=== PATIENT | female | born 1955 | race Caucasian/White ===

== ENCOUNTER → 2024-07-23 | Outpatient (CLI) | payer MEDICARE, SELFPAY ==
--- NOTE | 2024-07-23 16:34 | XR_ITS ---
Examination: CT abdomen and pelvis without contrast. Coronal 3-D reconstructions. Sagittal 2-D reconstructions. Date and time of exam:July 23, 2024 1650 hrs. Comparison November 30, 2022 Indications: Right upper abdominal pain left upper abdominal pain beginning 2 years ago CTDI: vol (mGy): 12.2 DLP: (mGycm): 654 Technique: Axial images of the abdomen have been obtained, 3 mm slice thickness Intravenous contrast material has not been administered. Low dose protocols were performed. One or more of the following dose reduction techniques were used; automated exposure control, adjustment of the mA and/or KV according to patient size, use of iterative reconstruction technique. Findings: Left base pneumonia with partially loculated left pleural fluid No focal liver or splenic lesion Significant patient motion severely degrades image quality Abnormal appearing gallbladder with wall thickening No gross pancreatic mass Atrophic kidneys with moderate renal parenchymal scar formation Moderate left hydronephrosis 8 mm calculus in the left renal pelvis with 1 mm lower pole calculus Aorta normal size Normal appendix No bowel obstruction No diverticulitis Contracted urinary bladder Absent uterus Impression: Left base pneumonia with loculated left pleural fluid, recommend PA lateral chest follow-up Recommend hepatobiliary sonography to exclude gallbladder wall thickening Atrophic kidneys with moderate renal parenchymal scar formation Moderate left hydronephrosis, 8 mm calculus in the left renal pelvis
== END | disposition home or self-care (01) ==
PROVIDERS: PCP Family Medicine; Referring Provider Urology; Visit Provider Urology
DX: J18.9 Pneumonia, unspecified organism (principal); N26.1 Atrophy of kidney (terminal); N28.89 Other specified disorders of kidney and ureter; N13.30 Unspecified hydronephrosis; N20.0 Calculus of kidney
CPT/HCPCS: 74176

== ENCOUNTER → 2024-07-24 | Outpatient (BNVA) | payer MEDICARE, SELFPAY | END | disposition home or self-care (01) | PROVIDERS: PCP Family Medicine; Referring Provider Family Medicine; Visit Provider Urology | DX: N20.0 Calculus of kidney (principal); D05.12 Intraductal carcinoma in situ of left breast; E03.9 Hypothyroidism, unspecified; F41.9 Anxiety disorder, unspecified; N18.9 Chronic kidney disease, unspecified; E66.9 Obesity, unspecified; Z68.35 Body mass index [BMI] 35.0-35.9, adult | CPT/HCPCS: 81003; 99212; G0463 ==

== ENCOUNTER → 2024-07-31 | Outpatient (CLI) | payer MEDICARE, SELFPAY ==
--- NOTE | 2024-07-31 16:03 | XR_ITS ---
Examination: PA lateral chest 2 views Technique: Upright PA lateral chest 2 views Exam date and time: July 31, 2024 at 1658 hrs. Comparison May 18, 2024 Indications: Congestion beginning 2 months ago. Findings: Pneumonia left base and lingular segment with lateral No significant cardiac enlargement Ectatic aorta Port-A-Cath tip satisfactory position Impression: Left lingular segment and left base pneumonia with pleural fluid
== END | disposition home or self-care (01) ==
LOC: CDIM 15:57
PROVIDERS: Referring Provider Family Medicine; Visit Provider Family Medicine
DX: J18.9 Pneumonia, unspecified organism (principal)
CPT/HCPCS: 71046

== ENCOUNTER → 2024-08-17 | Outpatient (CLI) | payer MEDICARE, SELFPAY ==
[2024-08-17 08:33] LABS: Collection Type, Urine Clean Catch
--- NOTE | 2024-08-17 08:50 | EKG_ITS ---
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
[2024-08-17 09:26] LABS: Basophils # (Auto) 0.1 Thou/mm3 (0.0-0.2); Basophils % (Auto) 1 % (0-2.5); Eosinophils # (Auto) 0.3 Thou/mm3 (0.0-0.5); Eosinophils % (Auto) 4 % (0-10); Hematocrit 33.5 % (36.0-46.0); Hemoglobin 10.1 g/dL (12.0-16.0); Immature Granulocytes % (Auto) 0 % (0-0); Immature Granulocytes Auto 0.02 Thou/mm3 (0.00-0.00); Lymphocytes # (Auto) 1.2 Thou/mm3 (1.0-4.8); Lymphocytes % (Auto) 19 % (10-50); Mean Corpuscular HGB Conc 30.1 g/dl (31.0-37.0); Mean Corpuscular Hemoglobin 27.9 pg (25.0-35.0); Mean Corpuscular Volume 93 fL (80-100); Monocytes # (Auto) 0.6 Thou/mm3 (0.0-0.8); Monocytes % (Auto) 10 % (0-12); Neutrophils # (Auto) 4.1 Thou/mm3 (1.8-7.7); Neutrophils % (Auto) 65 % (37-80); Nucleated Red Blood Cell % 0 /100 WBC (0); Platelet Count 281 Thou/mm3 (140-440); RDW Standard Deviation 54.2 fL (36.4-46.3); Red Blood Count 3.62 Miln/mm3 (4.00-5.20); White Blood Count 6.3 Thou/mm3 (3.6-11.0)
[2024-08-17 09:51] LABS: Alanine Aminotransferase < 7 U/L (10-49); Albumin, Serum 4.1 gm/dL (3.4-4.8); Alkaline Phosphatase 77 U/L (46-116); Anion Gap 9 (7-16); Aspartate Amino Transferase 15 U/L (0-34); BUN/Creatinine Ratio 17 Ratio (12-20); Bilirubin,Direct 0.2 mg/dL (0.0-0.3); Bilirubin,Total 0.4 mg/dL (0.3-1.2); Blood Urea Nitrogen 22 mg/dL (9-23); Calcium 9.8 mg/dL (8.3-10.6); Carbon Dioxide 28.3 mMol/L (20.0-31.0); Chloride 105 mMol/L (98-107); Creatinine (Component) 1.3 mg/dL (0.6-1.3); Glucose 93 mg/dL (74-106); Osmolality,Calculated 286 (275-295); Phosphorous 3.9 mg/dL (2.4-5.1); Potassium 4.8 mMol/L (3.4-5.1); Sodium 142 mMol/L (136-145); Total Protein 7.3 gm/dL (5.7-8.2); eGFR 45 See Note
--- NOTE | 2024-08-17 10:48 | XR_ITS ---
Examination: PA lateral chest 2 views TECHNIQUE: Upright PA lateral chest 2 views Exam date and time: August 17, 2024 1104 hours Comparison July 31, 2024 INDICATIONS: Preop, left lung pneumonia on chest film July 31, 2024 FINDINGS: Significant pneumonia left base again noted with moderate left pleural fluid Right lung clear Right internal jugular Port-A-Cath tip satisfactory position Stable cardiac contour IMPRESSION: Significant left base pneumonia again noted
[2024-08-17 10:52] LABS: Bilirubin,Urine Negative (Negative); Blood,Urine Negative (Negative); Clarity,Urine Clear (Clear/Hazy); Color,Urine Lt-Yellow (Lt Yel-Yel); Glucose, Urine Negative (Negative); Ketones,Urine Trace (Negative); Leukocyte Esterase,Urine Positive (Negative); Nitrite,Urine Negative (Negative); Protein,Urine Trace (Neg - Trace); RBC,Urine 8 /hpf (0-3); Specific Gravity,Urine 1.018 (1.001-1.035); Squamous Epithelial Cell,Urine 8 /hpf (0-5); Urobilinogen,Urine Negative mg/dL (0.0-1.0); WBC,Urine 12 /hpf (0-5)
== END | disposition home or self-care (01) ==
PROVIDERS: PCP Family Medicine; Referring Provider Family Medicine; Visit Provider Family Medicine
DX: Z01.818 Encounter for other preprocedural examination (principal); J18.9 Pneumonia, unspecified organism; Z01.812 Encounter for preprocedural laboratory examination
CPT/HCPCS: 36415; 71046; 80048; 80076; 81001; 84100; 85025; 93005

== ENCOUNTER 2024-08-19 08:10 | Day surgery (SDC) | payer MEDICARE, SELFPAY ==
[2024-08-18 11:15] VITALS: BMI 34.7
[2024-08-19] VITALS (9 sets, daily range): BP systolic 103–138; BP diastolic 61–83; PULSE 83–105; RESP 15–22; TEMP 36.2–36.6; O2SAT 94–99; BMI 35.1
[2024-08-19] MEDS: VANCOMYCIN/NS 1 GM IVPB 200 ML IV (09:09)
--- NOTE | 2024-08-19 09:53 | SUR.PREOP ---
pt red and itchy, head face, neck and back. dr sarabia made aware. breathing even and unlabored. vss.
[2024-08-19] MEDS: DiphenhydrAMINE INJ 50 MG/ML VIAL 25 MG IVP (10:00)
--- NOTE | 2024-08-19 10:30 | XR_ITS ---
Examination: Left retrograde pyelogram with without KUB Abdomen 2 views Fluoroscopy Exam date and time: August 19, 2024 1216 hours INDICATIONS: History abdominal pain in the left upper abdomen beginning 2 years ago, moderate left hydronephrosis 8mm calculus in the left renal pelvis on CT stone study July 23, 2024 TECHNIQUE AND FINDINGS: 2 AP abdomen spot fluoroscopic films obtained Contrast in dilated left calyces Left ureteral stent satisfactory position Fluoroscopy 69 seconds radiation dose 10.31 milligray IMPRESSION: Left retrograde pyelogram as above
--- NOTE | 2024-08-19 11:28 | PD.SUROPNT ---
Date of Procedure 08/19/24 Pre Op Diagnosis 8 mm stone left proximal ureter at the ureteropelvic junction, left hydronephrosis Post Op Diagnosis Impacted stone left proximal ureter at the ureteropelvic junction, left hydronephrosis Procedure Cystoscopic examination left retrograde pyelogram under fluoroscopic examination placement of left ureteral stent in a retrograde fashion under fluoroscopic examination 5 Micronesian 24 cm long double-J Findings Impacted stone left UPJ with left hydronephrosis Procedure Description Indication for procedure this is a 68-year-old female she suffers from severe anxiety she has a history of stone disease in the past she has left flank pain she was found to have a 8 mm stone proximal ureter left side with the left hydronephrosis she was recommended above procedure procedure and complications were discussed with the patient in great detail informed consent is obtained. Patient was brought to the operating room in a satisfactory condition after appropriate premedication was put on the operating table in a spine position she was appropriately identified by the surgeon and operating room staff site scope and indications of the procedure were reconfirmed with the patient general anesthesia was given uneventfully parts were prepped and draped in the usual sterile fashion patient received perioperative antibiotics and 20 mg of Lasix IV was given for diuresis and prevention of pyelocalyceal infectious complications Next 21 cystoscope was used to do the cystourethroscopy. Examination of bladder in all the quadrant was carried out there is no tumor stone or diverticuli identified both ureteral orifices were identified right ureteral orifice was effluxing clear urine no urine was coming out of left ureteral orifice. Next I passed a open-ended Pollick catheter into the left ureteral orifice and through the open-ended Pollick catheter under fluoroscopic examination I passed safety wire. There was complete obstruction at the ureteropelvic junction left side safety wire was curling back and it was not bypassing the stone. Safety wire was removed and I did the retrograde pyelogram left side no contrast medium was bypassing the stone. Again I advanced the open-ended Pollick catheter up to the stone and tried to manipulate the stone and try to pass a Glidewire again Glidewire was curling back and it was not bypassing the stone. At this time I took 2% lidocaine and injected through the open-ended Pollick catheter up to the stone this was done to relax the left ureter. Next I tried to pass Glidewire at this time I was able to insert a Glidewire into the upper pole calyx. Next even the open-ended Pollick catheter was stuck between the stone and ureteral wall ultimately I was able to remove the open-ended Pollick catheter.. She had a history of stone disease in the past and there is a possibility she had stricture at the ureteropelvic junction. Next over the safety wire under fluoroscopic examination I was able to place 5 Micronesian 24 cm double-J stent proximal and curled into the upper pole calyx and distal in the bladder. 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
--- NOTE | 2024-08-19 11:31 | SUR.PHASEI ---
pt received from OR in recovery bay 2. pt asleep but responds to voice, breathing unlabored on 8l oxymask, v/s stable. report received from Dr. Ureña and Colleen CEUVA.
--- NOTE | 2024-08-19 12:46 | SUR.PHASEII ---
pt able to tolerate oral fluids without difficulty swallowing or nausea/vomiting.
--- NOTE | 2024-08-19 13:15 | SUR.PHASEII ---
pt awake and alert, breathing unlabored on room air. v/s stable. pt able to ambulate to wheelchair with steady gait. d/c instructions given with friend alverto in room, all questions answered. pt d/c via wheelchair with all belongings.
== END 2024-08-19 13:15 | disposition home or self-care (01) ==
PROVIDERS: PCP Family Medicine; Referring Provider Urology; Visit Provider Urology
PROC: 0TJB8ZZ Inspection of Bladder, Via Natural or Artificial Opening Endoscopic (ICD-10-PCS; CPT 52000; principal; 2024-08-19 10:00)
DX: N13.2 Hydronephrosis with renal and ureteral calculous obstruction (principal)
CPT/HCPCS: 52005; 74420; A4217; A4649; C1769; C1876; C1894; J0131; J1100; J1200; J1580; J1940; J2250; J2405; J2704; J3010; J3370; J3490

== ENCOUNTER 2024-10-08 05:45 | Day surgery (SDC) | payer MEDICARE, SELFPAY ==
[2024-10-07 12:06] VITALS: BMI 34.3
[2024-10-07 13:48] LABS: Alanine Aminotransferase < 7 U/L (10-49); Albumin, Serum 4.1 gm/dL (3.4-4.8); Albumin/Globulin Ratio 1.4 (1.2-2.2); Alkaline Phosphatase 67 U/L (46-116); Anion Gap 8 (7-16); Aspartate Amino Transferase 16 U/L (0-34); BUN/Creatinine Ratio 18 Ratio (12-20); Bilirubin,Total 0.3 mg/dL (0.3-1.2); Blood Urea Nitrogen 21 mg/dL (9-23); Calcium 10.1 mg/dL (8.3-10.6); Calcium (Corrected) 10.1 mg/dL (8.5-10.1); Carbon Dioxide 29.1 mMol/L (20.0-31.0); Chloride 107 mMol/L (98-107); Creatinine (Component) 1.2 mg/dL (0.6-1.3); Estimated Creatinine Clearance 43.1 mL/min (>60); Glucose 93 mg/dL (74-106); Osmolality,Calculated 289 (275-295); Potassium 3.9 mMol/L (3.4-5.1); Sodium 144 mMol/L (136-145); Total Protein 7.1 gm/dL (5.7-8.2); eGFR 49 See Note
[2024-10-08] VITALS (8 sets, daily range): BP systolic 130–164; BP diastolic 66–89; PULSE 69–111; RESP 3–20; TEMP 36.2–36.4; O2SAT 48–100; BMI 34.4
[2024-10-08] MEDS: RINGERS LACTATED 1000 ML 1,000 ML 20 ML IV (06:48)
[2024-10-08] MEDS: VANCOMYCIN in NS 1 GM/200 ML BAG IV (06:49)
--- NOTE | 2024-10-08 07:13 | XR_ITS ---
Examination: Left retrograde pyelogram with without KUB Fluoroscopy AP abdomen 2 views Exam date and time: October 08, 2024 1050 hrs. Indications: History flank pain moderate left hydronephrosis 8 mm calculus in the left renal pelvis on CT stone study July 23, 2024, post ureteral stent placement, replacement ureteral stent today Technique And Findings: 2 spot fluoroscopic films abdomen obtained with opacification of dilated left renal calyces Lower portion of the left ureteral stent noted in satisfactory position Fluoroscopy 102 seconds radiation dose 13.86 milligray Impression: Left retrograde pyelogram as above
--- NOTE | 2024-10-08 10:00 | SUR.PHASEI ---
1000: Pt. arrived with oral airway in place, at arrival pt. SPO2 was at 27%, pt. had what appeared to be an apnea episode, OR Circulators Jonh and Deepali, and MD Rolle at bedside with pt. and nurse, pt. was bagged for 2 minutes and SPO2 went up to 97%, Pt. then woke up at 1002 and was able to breathe on her own and oral airway was removed. Pt. tolerated airway removal well. No dressing in place, no active bleed noted, report received from Jonh CUEVA. Deepali RN and MD Rolle.
--- NOTE | 2024-10-08 10:25 | SUR.PHASEI ---
1000: Pt. arrived with oral airway in place, at arrival pt. SPO2 was at 48%, pt. had what appeared to be an apnea episode, OR Circulators Jonh and Deepali, and MD Rolle at bedside with pt. and nurse, pt. was bagged for 2 minutes and SPO2 went up to 97%, Pt. then woke up at 1002 and was able to breathe on her own and oral airway was removed. Pt. tolerated airway removal well. No dressing in place, no active bleed noted, report received from Jonh CUEVA. Deepali RN and MD Rolle.
[2024-10-08] MEDS: ACETAMINOPHEN IVPB 1,000 MG/100 ML VIAL 250 MG IV (10:32)
--- NOTE | 2024-10-08 10:50 | ESOP_ITS ---
RE: TOMMIE ORTEZ : 1955 DATE OF OPERATION: 10/08/2024 PREPROCEDURE DIAGNOSIS: 1. An 8 mm and 4 mm left renal stones. 2. Moderate hydronephrosis, left. 3. Indwelling ureteral stents, left. POSTPROCEDURE DIAGNOSIS: Status post retrograde intrarenal surgery, left. PROCEDURE PERFORMED: Fluoroscopic imaging of upper urinary tract; cystoscopy, retrograde pyelogram, left under fluoroscopic control, retrograde intrarenal surgery with laser stone fragmentation and stone basketing x 20 plus, and placement of indwelling ureteral stent, left. SURGEON: Oni Huston MD SWITCH CLEANER SURGEON: Pamela Ho MD ANESTHESIA: General. INDICATIONS: This patient is a 69-year-old lady with complex left ureteral and renal stone disease. The patient approximately one month ago was initially treated for an impacted proximal ureteral stone measuring 8 mm with Hounsfield units of 1100. She had moderate to high-grade hydronephrosis. Her ureter was found too tight for safe instrumentation. Therefore, with difficulty an indwelling 4.8-Eritrean ureteral stent was placed for renal decompression and to allow for passive dilation of the ureter over time. The patient now comes for the planned second-stage procedure. The procedure of endoscopic surgery with kidney stone fragmentation and active stone removal was discussed again with the patient in detail and the patient about risks, benefits, and alternatives and consents to the procedure. DESCRIPTION OF FINDINGS: Fluoroscopically, the ureteral stent is seen in correct position. The 8 mm stone appears to be in the renal collecting system now the smaller stone on fluoroscopy is not readily identified. Endoscopically, again the ureter is relatively tight, but access to the kidney can be established and stone fragmentation is performed utilizing laser energy. As a result, the stone pieces have been removed with more than 20 passages with stone baskets and new stent displaced. DESCRIPTION OF PROCEDURE: Prior to initiation of anesthesia, the patient was appropriately identified by the surgeon and operating room personnel. Indications for surgery, site, and scope of surgery are reconfirmed with the patient. The patient received perioperative antibiotics intravenously. After induction of general anesthesia, patient was positioned on the endoscopy table in lithotomy position. The outer genitalia was prepped and draped in sterile fashion. A 21-Eritrean cystoscope was advanced into the bladder. The bladder mucosa is unremarkable. The stent is mildly encrusted. Safety wire was placed under fluoroscopic control. The patient received 20 mg of Lasix intravenously to induce diuresis and reduce the risk of pyelovenous reflux and infectious complications during the surgical procedure. The stent is then removed and checked for completeness. Following this, an attempt is made to directly advance a flexible digital ureteroscope; however, the ureter is too tight to accommodate it. Therefore, formal optical dilation of the ureter was performed using a 9.5-Eritrean semi-rigid instrument. This instrument was advanced over a second wire and can be advanced all the way up to the kidney. No pathology is encountered in the bladder other than the relative tightness. Next, a flexible digital ureteroscope was advanced over one of the wires and this can be advanced up into the kidney. The 8 mm stone is readily identified in the renal pelvis. Careful inspection of the calyces reveals two additional small stones. One is the 4 mm stone and the another is 3 mm stone. Stone fragmentation is performed using laser energy in order to remove all stone pieces. Ureteral access sheath was utilized and then more than 20 passages with stone baskets are performed to clear out all stone material. This accomplished, contrast was again injected, confirming the integrity of the left upper urinary tract. An indwelling stent was placed over the safety wire and under fluoroscopic and endoscopic control positioned correcting kidney and bladder. The bladder was emptied. The patient was awakened and returned to recovery where she arrived in satisfactory condition. ESTIMATED BLOOD LOSS: Minimal. COMPLICATIONS: None. SPECIMENS: Stone material for chemical analysis. Urine from hydronephrotic left kidney for culture and sensitivity testing. DISPOSITION: The patient will be discharged home from the outpatient surgical area. She will return within two weeks' time to the office of Dr. Ho for stent removal. DT: 09:56:42 TT: 10:43:00 Ref: [id number] - TID: [id number] [facility]ITAL[facility]
--- NOTE | 2024-10-08 11:04 | SUR.PHASEII ---
1104: Pt. AAOx4, vitals stable breathing unlabored, no complaint of pain or nausea, no dressing in place, pt. able to void hematuria, pt. tolerated sips of water well, pt. ambulated to wheelchair with steady gait and no assist, no complications. Gave discharge instructions to the pt. and her ride, both verbalized understanding and had no further questions. Pt. left with all personal belongings.
[2024-10-14 15:36] LABS: Stone Analysis Source LKIDNEYSTONES
[2024-10-15 07:04] LABS: Stone Analysis Weight 0.068 g
== END 2024-10-08 11:04 | disposition home or self-care (01) ==
PROVIDERS: Anesthesiology; PCP Family Medicine; Referring Provider Specialist; Visit Provider Urology
PROC: 0TJB8ZZ Inspection of Bladder, Via Natural or Artificial Opening Endoscopic (ICD-10-PCS; CPT 52000; principal; 2024-10-08 07:30)
DX: N13.2 Hydronephrosis with renal and ureteral calculous obstruction (principal); N20.2 Calculus of kidney with calculus of ureter
CPT/HCPCS: 52356; 36415; 74420; 80053; 82365; 87086; A4217; A4649; C1769; C1889; C1894; C2617; J0131; J0461; J1100; J1580; J1940; J2250; J2371; J2405; J2704; J3010; J3370; J3490; J7120; A9270

== ENCOUNTER → 2024-10-27 | Outpatient (BNVA) | payer MEDICARE, SELFPAY | END | disposition home or self-care (01) | PROVIDERS: PCP Family Medicine; Referring Provider Family Medicine; Visit Provider Urology | DX: N35.92 Unspecified urethral stricture, female (principal); Z96.0 Presence of urogenital implants; E03.9 Hypothyroidism, unspecified | CPT/HCPCS: 52281; 81003; 96372; A4217; A4649; C1894; J1580; A9270 ==

== ENCOUNTER → 2024-12-17 | Outpatient (CLI) | payer MEDICARE, SELFPAY ==
--- NOTE | 2024-12-17 13:15 | XR_ITS ---
Examination: Diagnostic digital mammography, unilateral, left Computer aided detection 3-D breast Tomosynthesis, unilateral Date and time of exam: December 17, 2024 1302 hours Compared to mammograms dating to December 26, 2017 INDICATION: Personal history left breast cancer Technique: Nonmagnified MLO, CC views of the left breast have been obtained, reconstructed from 3-D Tomosynthesis images. R2 computer aided detection program utilized for evaluation of suspicious masses and/or abnormal calcifications. 3-D Tomosynthesis images obtained. Findings: Scattered areas of fibroglandular density Stable scar formation outer posterior left breast with surgical clips No interval suspicious masses Impression: BI-RADS category 2: Benign findings Recommend yearly follow-up mammography
== END | disposition home or self-care (01) ==
PROVIDERS: Referring Provider Internal Medicine Hematology & Oncology; Visit Provider Internal Medicine Hematology & Oncology
DX: R92.322 Mammographic fibroglandular density, left breast (principal)
CPT/HCPCS: 77061; 77065; G0279

== ENCOUNTER → 2025-01-28 | Outpatient (CLI) | payer MEDICARE, SELFPAY ==
--- NOTE | 2025-01-28 14:00 | XR_ITS ---
Examination: Retroperitoneal ultrasound, complete Technique: Multiple high resolution grayscale images of the retroperitoneum obtained, including kidneys and bladder. Exam date and time:01/28/2025 at 1419 hours INDICATIONS: History kidney stones, stent placement October 08, 2024 removed October 2024 FINDINGS: Right kidney 9.0 cm cortex 1.4 cm Left kidney 9.8 cm cortex 1.7 cm Moderate renal parenchymal scar formation No hydronephrosis or renal calculi Contracted urinary bladder, bladder volume 86 cc IMPRESSION: Small kidneys with bilateral renal cortical thinning Moderate renal parenchymal scar formation
== END | disposition home or self-care (01) ==
LOC: CDIM 14:03
PROVIDERS: Referring Provider Urology; Visit Provider Urology
DX: N28.89 Other specified disorders of kidney and ureter (principal)
CPT/HCPCS: 76770

== ENCOUNTER → 2025-03-02 | Outpatient (BNVA) | payer MEDICARE, SELFPAY | END | disposition home or self-care (01) | PROVIDERS: PCP Urology; Referring Provider Urology; Visit Provider Urology | DX: N13.2 Hydronephrosis with renal and ureteral calculous obstruction (principal); D05.12 Intraductal carcinoma in situ of left breast; E03.9 Hypothyroidism, unspecified; F41.9 Anxiety disorder, unspecified; N18.9 Chronic kidney disease, unspecified; E66.9 Obesity, unspecified; Z68.35 Body mass index [BMI] 35.0-35.9, adult; Z92.21 Personal history of antineoplastic chemotherapy | CPT/HCPCS: 81003; 99212; G0463 ==

== ENCOUNTER → 2025-07-15 | Outpatient (CLI) | payer MEDICARE, SELFPAY ==
--- NOTE | 2025-07-15 13:15 | XR_ITS ---
Examination: Diagnostic digital mammography, unilateral, right Computer aided detection 3-D breast Tomosynthesis, unilateral Date and time of exam: July 15, 2025: 1258 hours, compared to mammograms dating to December 26, 2017 Technique: Nonmagnified MLO, CC views of the right breast have been obtained, reconstructed from 3-D Tomosynthesis images. R2 computer aided detection program utilized for evaluation of suspicious masses and/or abnormal calcifications. 3-D Tomosynthesis images obtained. Findings: Scattered areas of fibroglandular density. 8 mm nodular asymmetry inner lower right breast anterior depth Benign calcifications Impression: BI-RADS category 0: Incomplete: Need additional imaging evaluation Recommend follow-up spot tomographic views of 8 mm nodular asymmetry inner lower right breast anterior depth as well as right breast sonography to complete the work-up
== END | disposition home or self-care (01) ==
LOC: CDIM 12:48
PROVIDERS: Referring Provider Family Medicine; Visit Provider Family Medicine
DX: R92.8 Other abnormal and inconclusive findings on diagnostic imaging of breast (principal); N64.89 Other specified disorders of breast
CPT/HCPCS: 77061; 77065; G0279